=== PATIENT | female | born 1955 | race Caucasian/White ===

== ENCOUNTER 2019-05-22 07:36 | Day surgery (SDC) | payer MEDICARE, SELFPAY ==
[2019-05-21 16:10] VITALS: BMI 29.0
[2019-05-22 07:54] VITALS: BP 180/80; PULSE 71; RESP 18; TEMP 36.9; O2SAT 94
--- NOTE | 2019-05-22 08:00 | US_ITS ---
WS: [id number] ULTRASOUND LEFT BREAST HISTORY: MASS LT BREAST. ATTEMPT AT NEEDLE LOCALIZATION. COMPARISON: 04/11/2019 TECHNIQUE: 2-D and Doppler. Attempted wire localization of biopsy clip in the LEFT breast. Unable to definitely visualize the cli p. There is an area suspicious for the clip but this is not definite. Will change localization to karie reotactic. US/US breast LT limited* [id number] IMPRESSION: Unsuccessful localization of the prior biopsy clip in the LEFT breast. We will perform stereotactic localization.
--- NOTE | 2019-05-22 08:56 | MM_ITS ---
WS: [id number] STEREOTACTIC LEFT BREAST NEEDLE LOCALIZATION HISTORY: LT BREAST LUMP, localization of a clip upper outer quadrant of the LEFT breast. Unable to id entify the clip or nodule by ultrasound. COMPARISON: 03/06/2019 and 01/29/2019 Procedure, risks and complications are explained to the patient. Consent has been obtained. Localization of the prior biopsy clip is done with stereotactic technique. Skin is cleansed with Chlo raPrep and anesthetized with 1% buffered lidocaine. Kopans needle is inserted to the level of the bio psy clip. Needle is advanced 0.5 cm beyond the prior biopsy clip. Wire is secured and the patient is sent to the OR with no complications. SPECIMEN RADIOGRAPH: Initial specimen radiograph did not obtain the calcifications. 2 additional spec imens are submitted. One of these specimens labeled lateral edge and 2 out of 3 does contain the biop sy clip. MM/[place] [id number] IMPRESSION: 1. Stereotactic localization of the biopsy clip upper outer quadrant of the LE FT breast is successful. PATHOLOGY: Small intraductal papilloma versus noninvasive papillary carcinoma. Additional sclerosing adenosis with microcalcifications with hyperplasia. Exten sive fibrocystic changes. No invasive tumor is identified. Atypia is less than 1 mm from the margin in specimen B. RECOMMENDATION: Follow-up with Dr. Rodriguez.
--- NOTE | 2019-05-22 08:56 | MM_ITS ---
WS: [id number] STEREOTACTIC LEFT BREAST NEEDLE LOCALIZATION HISTORY: LT BREAST LUMP, localization of a clip upper outer quadrant of the LEFT breast. Unable to id entify the clip or nodule by ultrasound. COMPARISON: 03/06/2019 and 01/29/2019 Procedure, risks and complications are explained to the patient. Consent has been obtained. Localization of the prior biopsy clip is done with stereotactic technique. Skin is cleansed with Chlo raPrep and anesthetized with 1% buffered lidocaine. Kopans needle is inserted to the level of the bio psy clip. Needle is advanced 0.5 cm beyond the prior biopsy clip. Wire is secured and the patient is sent to the OR with no complications. SPECIMEN RADIOGRAPH: Initial specimen radiograph did not obtain the calcifications. 2 additional spec imens are submitted. One of these specimens labeled lateral edge and 2 out of 3 does contain the biop sy clip. MM/MM surgical specimen LT IMPRESSION: 1. Stereotactic localization of the biopsy clip upper outer quadrant of the LE FT breast is successful. PATHOLOGY: Small intraductal papilloma versus noninvasive papillary carcinoma. Additional sclerosing adenosis with microcalcifications with hyperplasia. Exten sive fibrocystic changes. No invasive tumor is identified. Atypia is less than 1 mm from the margin in specimen B. RECOMMENDATION: Follow-up with Dr. Rodriguez.
[2019-05-22] MEDS: sodium chloride 0.9% 1,000 ML 30 ML IV (10:27)
--- NOTE | 2019-05-22 10:55 | ANES.PREANES ---
Pre-Anesthetic Assessment Pre-Anesthetic Assessment: Height/Weight: Height 1.68 m Weight 81.647 kg Temp Pulse Resp BP Pulse Ox 98.4 F 71 18 180/80 94 05/22/19 07:54 05/22/19 07:54 05/22/19 07:54 05/22/19 07:54 05/22/19 07:54 Preop Diagnosis: Left breast lump Proposed Procedure: Operation Date: 05/22/19 10:20 Proposed Procedures p Breast Biopsy Needle Localization(Left) - Robinson Rodriguez MD s Breast Biopsy/Lumpectomy(Left) - Robinson Rodriguez MD Last intake: Intake Last Liquid Date 05/21/19 Last Liquid Time 19:00 Last Solid Date 05/21/19 Last Solid Time 19:00 Social: Social History: Tobacco Packs per day: 1 Pack years: 40 Comment: quit 10y Exam: Pre-Anes Outpt Exam: alert, oriented x 3, clear to auscultation bilaterally and regular rate & rhythm Pulmonary: Pulmonary: COPD Metabolic: Metabolic: Hyperlipidemia Neuropsych: Neuropsych: Depression Anesthetic Plan: ASA status: III Meds/Allergies Current Medications: Current Medications Generic Name Dose Route Start Last Admin Trade Name Freq PRN Reason Stop Dose Admin Sodium Chloride 1,000 mls @ 30 ml s/hr 05/22/19 07:45 05/22/19 10:27 Sodium Chloride 0.9% IV 05/23/19 07:44 30 mls/hr .Q24H COURTNEY Administration Data Anesthesia Cardiac Studies: No Data to Display
--- NOTE | 2019-05-22 11:13 | PM.HPUD ---
H&P update H&P Update: DATE OF SURGERY/PROCEDURE: 05/22/19 DATE H&P PERFORMED: 05/22/19 PLANNED PROCEDURE: Operation Date: 05/22/19 10:20 Proposed Procedures p Breast Biopsy Needle Localization(Left) - Robinson Rodriguez MD s Breast Biopsy/Lumpectomy(Left) - Robinson Rodriguez MD Full H&P Medications/Allergies: Current Medications: Current Medications Generic Name Dose Route Start Last Admin Trade Name Freq PRN Reason Stop Dose Admin Sodium Chloride 1,000 mls @ 30 ml s/hr 05/22/19 07:45 05/22/19 10:27 Sodium Chloride 0.9% IV 05/23/19 07:44 30 mls/hr .Q24H COURTNEY Administration
--- NOTE | 2019-05-22 12:07 | P.OP_ITS ---
Operative Report Date of procedure: 05/22/19 Pre-op Diagnosis: Left breast papillary lesion. Post-op diagnosis: same Procedure Done: Left breast biopsy following preoperative needle localization. Specimens removed/disposition: 1. Left breast lumpectomy specimen. Long suture anteriorly, short suture medially. 2. Medial edge of biopsy cavity. Suture opposite side of previous biopsy cavity. 3. Lateral edge of biopsy cavity. Suture opposite side of previous biopsy cavity. Surgeon: Robinson Rodriguez Anesthesia: MAC Estimated blood loss (mL): 10 Complications: None. Condition: stable Disposition: same day Procedure: The patient was brought to the operating room and was placed in a supine position on the operating room table. A monitored anesthetic was induced. The left breast was prepped and draped in a sterile fashion, taking care not to disturb the localization wire which had been placed in radiology preoperatively. A combination of 1% lidocaine and 0.5% bupivacaine with 1- 200,000 parts epinephrine was used for local anesthesia throughout the procedure. A slightly curvilinear incision was carried out at the entrance point of the wire in the upper outer quadrant of the left breast. Cautery was used to divide some of the breast tissue and eventually the top of the hub of the localization wire was seen. The wire and surrounding breast tissue were grasped with an Allis clamp and sharp dissection was used to remove all of the tissue all the way around the tip of the wire. The specimen was marked with a long suture anteriorly and a short suture medially. Upon removing the specimen from the cavity, however, the wire came out of the tissue. The tissue was still sent for an x-ray and even though some calcifications could be seen on one edge of the biopsy clip could not be identified. Upon palpation of the biopsy cavity the patient had some fibrous tissue both medially and laterally in the biopsy cavity. The lateral edge was grasped with an Allis clamp and was sharply exc ised. A suture was placed opposite the previous biopsy cavity side. Medially the fibrosis extended somewhat anteriorly and so a portion of the anterior edge and then the medial edge of tissue were excised sharply and once again, a suture of 0 Vicryl was placed opposite the previous biopsy cavity. The wound was irrigated with saline. No other abnormalities were found on palpation or inspection. Hemostasis was achieved with cautery. The skin was reapproximated using a running subcuticular suture of 4-0 Vicryl. Benzoin and Steri-Strips were placed over the incision and a sterile bandage fo llowed. The patient was taken to the recovery area in stable condition postoperatively.
[2019-05-22 12:12] VITALS: BP 139/77; PULSE 70; RESP 16; TEMP 36.6; O2SAT 93
[2019-05-22 12:37] VITALS: BP 162/80; PULSE 61; RESP 18; TEMP 36.6; O2SAT 93
== END 2019-05-22 13:27 | disposition home or self-care (01) ==
PROVIDERS: Family Provider Family Medicine; PCP Family Medicine; Visit Provider Surgery
PROC: (CPT 19101; principal; 2019-05-22 10:45)
PROC: (CPT 19101; 2019-05-22 10:45)
DX: D05.82 Other specified type of carcinoma in situ of left breast (principal); J43.9 Emphysema, unspecified; G47.30 Sleep apnea, unspecified; Z82.49 Family history of ischemic heart disease and other diseases of the circulatory system; Z83.3 Family history of diabetes mellitus; Z80.3 Family history of malignant neoplasm of breast; F17.210 Nicotine dependence, cigarettes, uncomplicated; E78.5 Hyperlipidemia, unspecified; F32.9 Major depressive disorder, single episode, unspecified
CPT/HCPCS: 19101; 12345; 19281; 76642; 88305; 88341; 88342; 96365; J0690; J2001; J2704; J3010; J3490; J7030

== ENCOUNTER 2019-06-12 14:36 | Outpatient (CLI) | payer MEDICARE, SELFPAY ==
--- NOTE | 2019-06-12 18:13 | ONC CON_ITS ---
Dr. Terrazas New Patient Note Patient: Jannet Vargas Unit #: [id number]: 1955 Dicatated By: Morgan Terrazas M.D.Date of Visit: Jun 12, 2019 Onc MED New Patient/Consult Referring Physician: Dr. Robinson Rodriguez M.D. Chief Complaint: Breast cancer. History of Present Illness: This is a 63-year-old woman with ductal carcinoma in situ of the left breast. She has been in good general health. She had presented with an abnormal screening mammogram. That study, from 01/29/2019, was BI-RADS 0 with increasing parenchymal asymmetry density noted in the upper outer left breast. Diagnostic mammogram with focused left breast ultrasound on 03/06/2019 was BI-RADS 4, suspicious. The ultrasound showed a wedge-shaped hypoechoic focus at the 2 o'clock position of the left breast measuring 3 x 3 x 4 mm. Biopsy was recommended. She returned for ultrasound-guided core needle biopsy of the left breast lesion on 04/11/2019. Pathology showed disrupted papilloma with monotonous pattern, appearance of which was highly suspicious for noninvasive papillary carcinoma. With that finding, she underwent left breast lumpectomy on 05/22/2019. The procedure included additional excisions from the medial and lateral edges of the biopsy cavity. Pathology on the initial excision showed a small intraductal papilloma with extensive sclerosing adenosis with microcalcifications. There was columnar cell hyperplasia with mild to moderate atypia, and there was focal atypical ductal hyperplasia. The additional excision at the lateral margin showed ductal carcinoma in situ, micropapillary pattern, low nuclear grade. DCIS was present within 1 mm of the new inked margin. There was no invasive carcinoma identified. The medial margin showed a small intraductal papilloma with no invasive or ductal carcinoma in situ identified. She is seen for further management of the breast cancer. She has been feeling fine. She has good energy and activity tolerance. ECOG score 0. Her appetite is good. She has no fever, night sweats, or hot flashes. She has chronic sinus symptoms. She has shortness of breath associated with COPD. She is on CPAP for obstructive sleep apnea. She does not complain of cough, and she has not been having chest pain. She has no GI or complaints. She has some arthritis in her left index finger. She has no other joint or bone pain. She has no focal neurologic symptoms. Past Medical History: Her medical history includes anxiety/depression, chronic obstructive pulmonary disease, hyperlipidemia, and obstructive sleep apnea. Past Surgical History: She underwent ultrasound directed core needle biopsy of the left breast on 04/11/2019. She underwent left breast lumpectomy on 05/22/2019. She had a previous biopsy of the left breast for benign disease in 2012. Her other surgeries have been limited to tonsillectomy and tubal ligation. Medications: Advair Diskus 1 (250-50 mcg/dose) Aerosol Powder, Breath Activated Inhalation daily, Lenora Allergy 2 Tablet (of 180 mg) Oral daily, CeleXA 1 Tablet (of 20 mg) Oral daily, Combivent Respimat 1 (20-100 mcg/act) Aerosol, solution Inhalation daily, Ibuprofen 1 Tablet (of 200 mg) Oral b.i.d., Pravastatin Sodium 1 Tablet (of 80 mg) Oral daily, traZODone HCl 1 Tablet (of 50 mg) Oral daily, Tylenol Sinus Severe 1 Tablet (of 5-325-200 mg) Oral PRN Allergies: Effexor XR, Sulfa Antibiotics, and Wellbutrin. Social History: Ms. Vargas is and she is retired. She has a history of smoking 1 1/2 to 2 packs of cigarettes daily for 25 years. She quit smoking 15 years ago. She has had some alcohol use, estimated at 2-4 beers once or twice a week. Family History: Her father had around age 70. She doesn't know much about him, as he had left when she was very young. Her mother had breast cancer. She with pulmonary embolism at age 85. Two sisters are in good health. Review Of Symptoms: Constitutional - She feels pretty good generally. She has good energy and she has normal activity. Her appetite is good and her weight is stable. No fever, chills, hot flashes, or night sweats. ECOG score is 0, Eyes - No change in vision, ENMT - No hearing loss. She has tinnitus. She has sinus congestion/drainage. No mouth sores. No sore throat or difficulty swallowing, Hematologic/Lymphatic - She bruises easily, Respiratory - She has some shortness of breath. No cough. No pleuritic pain or hemoptysis. She wears a CPAP at night, Cardiovascular - No angina pain. No palpitations, Gastrointestinal - No nausea or vomiting. No heartburn or acid reflux. No diarrhea or constipation. No blood in the stool or black stools, Genitourinary (F) - No dysuria or hematuria. No urinary frequency. No urgency or incontinence, Musculoskeletal - She has arthritis in her left index finger. She has no other joint or bone pain, Integumentary - No skin complications, Neurologic - She has occasional sinus headache. No dizziness. No numbness/paresthesias or other focal neurologic symptoms, Psychiatric - She has some anxiety and she feels depressed at times. No insomnia. Vital Signs: Performed on Jun 12, 2019 15:39: 0, 29.99, 1.94 sq.m, 66.00 in, 94 % (LOW), 72 /min, 18 /min, 155/83 mm(hg) (HIGH), 97.7 F (LOW), and 185.8 lbs (HIGH). Physical Examination: Constitutional - She appears to be in good general health, Eyes - Sclerae nonicteric. Conjunctivae clear, ENMT - No lesions noted in the oral cavity, Neck - No mass or thyromegaly, Hematologic/Lymphatic - No cervical or clavicular adenopathy, Respiratory - Lungs sound clear with diminished air movement bilaterally, Cardiovascular - Heart rhythm is regular. There is no murmur, gallop, or rub noted, Breasts - The right breast shows no mass. There is slight induration at the lumpectomy site in the upper outer quadrant of the left breast. There is no mass palpable. There is no axillary adenopathy, Abdomen - Soft and non-tender. Liver and spleen are not enlarged. There is no abdominal mass or ascites noted and there is no inguinal adenopathy, Back/Spine - No spine or CVA tenderness noted, Extremities - No edema. Pedal pulses are palpable bilaterally, Integumentary - No rashes. No suspicious skin lesions noted, Neurologic - No focal neurologic deficits noted. Impression: 1. Patient with very small focus of low nuclear grade ductal carcinoma in situ of the left breast. She underwent left breast lumpectomy on 05/22/2019. There was ductal carcinoma in situ within 1 mm of the final margin. There was no invasive carcinoma identified. 2. She had additional pathologic findings in the lumpectomy specimen including intraductal papilloma, columnar cell hyperplasia with mild to moderate atypia, and focal atypical ductal hyperplasia. Her other medical illnesses include: 3. Hyperlipidemia. 4. COPD. 5. Obstructive sleep apnea. 6. Anxiety/depression. Plan: The pathology results were reviewed with the patient and her . We discussed the clinical implications. Her left breast lumpectomy did show evidence of a small focus of ductal carcinoma in situ, though it probably was not the source of the abnormal mammogram/ultrasound. Nonetheless, there was DCIS within 1 mm of the surgical margin, and I think it would be advisable for her to proceed with radiation to the left breast. We discussed the fact that this is not invasive cancer and that it does not have potential to spread. However, she may still benefit with adjuvant hormonal therapy, particularly in view of the other pathologic findings in the lumpectomy specimen, particularly the atypical columnar cell hyperplasia and the atypical ductal hyperplasia, which does put her higher risk for further development of breast cancer. At this point I will arrange for referral to Dr. Fajardo to discuss radiation. I will plan to see her again for further discussion of adjuvant hormonal therapy when the radiation is completed. Signed By: Morgan Terrazas M.D. <<Signature on File>>
== END 2019-06-12 14:37 | disposition home or self-care (01) ==
LOC: ONCMED 14:36
PROVIDERS: Family Provider Family Medicine; PCP Family Medicine; Referring Provider Surgery; Visit Provider Internal Medicine Medical Oncology
DX: D05.12 Intraductal carcinoma in situ of left breast (principal); F41.8 Other specified anxiety disorders; J44.9 Chronic obstructive pulmonary disease, unspecified; E78.5 Hyperlipidemia, unspecified; G47.33 Obstructive sleep apnea (adult) (pediatric); Z79.51 Long term (current) use of inhaled steroids; Z87.891 Personal history of nicotine dependence
CPT/HCPCS: 99205

== ENCOUNTER 2019-06-13 12:00 | Outpatient (CLI) | payer MEDICARE, SELFPAY ==
--- NOTE | 2019-06-14 20:07 | N.ONRAD NP_ITS ---
Radiation Oncology New Patient Visit Patient: Jannet Vargas MR#: [id number] : 1955> Age: 63> Sex: Female> Dictated by: Dr. Prince Fajardo Date of Service: 06/13/2019 Referring Physician(s) : Dr. Robinson Rodriguez Primary Diagnosis: D05.12 - intraductal carcinoma in situ of left breast, Diagnosed 06/12/2019 (active). Previous Treatment: Left breast lumpectomy Chief complaint: breast cancer History of Present Illness: This is a 63 y/o female who had an abnormal mammogram, category 4, which showed an increasing parenchymal asymmetry density noted in the upper outer left breast. Ultrasound revealed a wedge-shaped hypoechoic focus at 2:00 O???clock position. She underwent an ultrasound-guided core needle biopsy of this lesion on April 11, 2019. Pathology showed disrupted papilloma with more lung tumor mass pattern, appearance of which was highly suspicious for noninvasive papillary carcinoma. She denies any symptoms associated with the diagnosis. Specifically, she denies feeling a nodule/mass, skin changes, and nipple retraction/discharge. The patient underwent left breast lumpectomy on May 22, 2019 with additional excisions from the medial and lateral edges of the lumpectomy cavity. Pathology showed DCIS which was present within 1 mm of the new inked margin from the left lateral edge. She has recovered well from the surgery with no complications. She comes in today to discuss about adjuvant radiation therapy. Current Medications: Advair Diskus, luis Allergy, celeXA, combivent Respimat, ibuprofen, pravastatin Sodium, traZODone HCl, tylenol Sinus Severe. Allergies: Sulfa Antibiotics, Wellbutrin and Effexor XR. Medical History: - Anxiety, - chronic obstructive pulmonary disease, - depression, - hyperlipidemia, - obstructive sleep apnea. No history of collagen vascular disease. No previous radiation therapy. Surgical History: Left breast biopsy for benign disease in 2012, left breast lumpectomy on 05/22/2019, tonsillectomy, tubal ligation and ultasound directed core needle biopsy of the left breast on 04/11/2019. Family History: Her father had around age 68. She doesn't know much about him, as he had left when she was very young. Her mother had breast cancer. She with pulmonary embolism at age 85. Two sisters are in good health. Social History: Last screened on 06/13/2019 - Yes - but has quit for 15 years. Smoked for 25 years. Last screened on 06/13/2019 - Active drinker 4 drinks/day 2 days/week. Patient indicated access to the following support systems: Adequate transportation available for expected visits, Lives in own house, Lives with spouse, significant other, family, or friends, and Supportive family/friends willing to assist with needs. Patient indicated the following nutritional habits: Regular meals. Patient indicated participation in the following forms of activity: Regular exercise. Obstetrics/Gynecology History: G2, P2. Age of menarche at age 8. Went through natural menopause at age 47. No H/O receiving HRT. H/O using BCP for 15 years. Current Complaints / Review of Systems: Constitutional - Denies lack of appetite, fatigue, fever, night sweats and change in weight. Eyes - Denies blurred vision and double vision. ENMT - Denies dysphagia, ear pain, mouth dryness, stomatitis and altered taste. Neck - Denies neck pain. Integumentary - Denies rash. Breasts - Denies pain. Cardiovascular - Denies arrhythmias and chest pain. Respiratory - Complains of mild dyspnea associated with normal activity. Denies cough, hemoptysis and wheezing. Gastrointestinal - Denies abdominal pain, constipation, diarrhea, heartburn / dyspepsia, melena / GI bleeding, nausea and vomiting. Genitourinary (F) - Denies dysuria, frequency, urgency, vaginal discharge / bleeding and vaginal spotting. Musculoskeletal - Denies bone pain, joint pain and muscle weakness. Neurologic - Denies dizziness, abnormal gait and headaches. Endocrine - Denies diabetes and thyroid disease. Hematologic/Lymphatic - Denies tender or enlarged lymph nodes.. Vital Signs: Performed on 06/13/2019 11:28 AM BMI - 29.795 kg/m2 (high), Height - 66.00 in, Weight - 184.6 lbs, Temperature - 98.4 f, Pulse - 60, Respiration - 18, O2 Sat - 94 % (low), Pain - 0, Fatigue - 0 and BP - 136/ 79 mm(hg). Physical Exam: General: Alert and oriented x 3. No acute distress. HEENT: Normocephalic, atraumatic. Extraocular Movements Intact: Pupils Equal, Round, Reactive to Light and Accommodation: Sclerae anicteric. Oral cavity is clear without lesions, masses or ulcers. NECK: Supple without supraclavicular or jugular lymphadenopathy. LUNGS: Clear to auscultation bilaterally without rales, rhonchi or wheeze. HEART: Regular rate and rhythm, normal S1 and S2 without murmur, gallop or rub. BREASTS: There is no mass/nodule palpated of the left breast. No skin change, nipple discharge or retraction. The surgical incision has healed up well with no signs of bleeding or infection. No enlarged lymph nodes in the axilla. Exam of the contralateral breast is unremarkable. MUSCULOSKELETAL: No tenderness or percussion pain over the axial skeleton, scapulae or pelvis. ABDOMEN: Soft, nontender, nondistended without masses or organomegaly. Bowel sounds are present. EXTREMITIES: No peripheral edema is identified. Limited motor and sensory examination are grossly intact and symmetric bilaterally. NEUROLOGIC: Cranial nerves II ???XII are grossly intact. Normal sensation, strength 5/5 in all extremities, normal gait, no ataxia. Performance Status: 0 - Fully active, able to carry on all predisease activities without restrictions. (ECOG) Pathology: intraductal carcinoma in situ of left breast, Lab: none pending Imaging: See HPI Impression: The patient is a 63 year old female recently diagnosed with left breast DCIS, low nuclear grade, s/p left lumpectomy. Surgical margins are negative but close at left lateral <1mm. Plan: I recommend adjuvant whole breast irradiation to 42.5Gy followed by a boost to the tumor bed of 10Gy. The procedure, benefit, risks and potential side effects of radiation therapy were explained to the patient and her family in detail. The potential side effects include but are not limited to fatigue, skin reaction, breast swelling/tenderness, fibrosis, slightly increased risk of rib fracture, damage to the lung and heart, lymphedema and secondary malignancy. Ms Vargas has expressed good understanding and decided to proceed with the radiotherapy. Signed by: 06/14/2019 8:05:53 PM <<Signature on File>> CPT Code: CPT Code: Signed By: Dr. Prince Fajardo, 06/14/2019 8:05:54 PM <<Signature on File>>
== END 2019-06-13 12:01 | disposition home or self-care (01) ==
LOC: ONCMED 12:01
PROVIDERS: Family Provider Family Medicine; PCP Family Medicine; Visit Provider Radiology Radiation Oncology
DX: D05.12 Intraductal carcinoma in situ of left breast (principal); F41.8 Other specified anxiety disorders; J44.9 Chronic obstructive pulmonary disease, unspecified; E78.5 Hyperlipidemia, unspecified; G47.33 Obstructive sleep apnea (adult) (pediatric); Z79.51 Long term (current) use of inhaled steroids; Z79.891 Long term (current) use of opiate analgesic; Z87.891 Personal history of nicotine dependence; Z98.890 Other specified postprocedural states
CPT/HCPCS: 99205

== ENCOUNTER 2019-06-27 05:44 | Outpatient (RCR) | payer MEDICARE, SELFPAY ==
--- NOTE | 2019-06-18 | CT_ITS ---
Radation Therapy Planning CT images; total exam DLP: 487.19 mGy-cm MTDD
--- NOTE | 2019-06-25 14:47 | ONCRAD TMN_ITS ---
Radiation Oncology Weekly Treatment Management Patient: Jannet Vargas MR#: [id number] : 1955> Age: 64> Sex: Female Dictated by: Dr. 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 ID: [id number], Energy: 15X/6X, Dose/Fx (cGy): 266, #Fx: , Dose Correction (cGy): 0, Total Dose (cGy): 266, Start Date: 06/25/2019, Elapsed Days: 0 Current Complaints/Interval History: Constitutional Denies lack of appetite, fatigue, fever, night sweats and change in weight. Integumentary No redness to the left breast Breasts Denies pain. Respiratory Complains of chronic dyspnea. Denies cough and wheezing. Current Medications: Advair Diskus, luis Allergy, celeXA, combivent Respimat, ibuprofen, pravastatin Sodium, traZODone HCl, tylenol Sinus Severe. Allergies: Sulfa Antibiotics, Wellbutrin and Effexor XR. Vital Signs: Performed on 06/25/2019 1:44 PM BMI - 29.763 kg/m2 (high), Height - 66.00 in, Weight - 184.4 lbs, Temperature - 97.9 f, Pulse - 63, Respiration - 18, O2 Sat - 95 % (low), Pain - 0 and BP - 153/ 83 mm(hg)(high/). Physical Exam: Appears stable, no skin erythema or desquamation. Performance Status: 0 - Fully active, able to carry on all predisease activities without restrictions. (ECOG) Lab: None pending in Radiation Oncology. Imaging: No new diagnostic imaging was performed since the last weekly treatment visit. All radiation therapy related imaging (including but not limited to kV generated images) was reviewed. Appropriate changes, if any, were made to assure accurate target localization. Impression/Plan: Started RT today. Doing well. Continue treatment as planned. CPT: 25398 Signed by: Dr. Prince Fajardo>06/25/2019 2:46:18 PM <<Signature on File>>
== END 2019-06-28 23:59 | disposition home or self-care (01) ==
LOC: ONCMED 05:44
PROVIDERS: Family Provider Family Medicine; PCP Family Medicine; Visit Provider Radiology Radiation Oncology
DX: Z51.0 Encounter for antineoplastic radiation therapy (principal); D05.12 Intraductal carcinoma in situ of left breast; R06.00 Dyspnea, unspecified
CPT/HCPCS: 77280; 77290; 77295; 77300; 77334; 77387; 77412

== ENCOUNTER 2019-07-28 06:30 | Outpatient (RCR) | payer MEDICARE, SELFPAY ==
--- NOTE | 2019-06-30 11:47 | ONCRAD TMN_ITS ---
Radiation Oncology Weekly Treatment Management Patient: Jannet Vargas MR#: [id number] : 1955 Age: 64 Sex: Female Dictated by: Dr. Prince Fajardo Date of Service: 06/30/2019 Referring Physician(s) : Natasha Geiger M.D. 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 ID: [id number], Energy: 15X/6X, Dose/Fx (cGy): 266, #Fx: , Dose Correction (cGy): 0, Total Dose (cGy): 1,064, Start Date: 06/25/2019, Elapsed Days: 5 Current Complaints/Interval History: Constitutional Denies lack of appetite, fatigue, fever, night sweats and change in weight. Integumentary No redness or irritation to the left breast Breasts Denies pain. Respiratory Complains of chronic dyspnea. Denies cough and wheezing. Current Medications: Advair Diskus, luis Allergy, celeXA, combivent Respimat, ibuprofen, pravastatin Sodium, traZODone HCl, tylenol Sinus Severe. Allergies: Sulfa Antibiotics, Wellbutrin and Effexor XR. Vital Signs: Performed on 06/30/2019 11:21 AM BMI - 30.118 kg/m2 (high), Height - 66.00 in, Weight - 186.6 lbs, Temperature - 97.9 f, Pulse - 62, Respiration - 20, O2 Sat - 94 % (low), Pain - 0 and BP - 143/ 72 mm(hg)(high/). Physical Exam: Appears stable, no skin erythema or desquamation. Performance Status: 0 - Fully active, able to carry on all predisease activities without restrictions. (ECOG) Lab: None pending in Radiation Oncology. Imaging: No new diagnostic imaging was performed since the last weekly treatment visit. All radiation therapy related imaging (including but not limited to CBCT generated images) was reviewed. Appropriate changes, if any, were made to assure accurate target localization. Impression/Plan: Tolerating treatment well. Continue treatment as planned. Continue aquaphor CPT: 84338 Signed by: Dr. Prince Fajardo>06/30/2019 11:45:13 AM <<Signature on File>>
--- NOTE | 2019-07-09 13:13 | ONCRAD TMN_ITS ---
Radiation Oncology Weekly Treatment Management Patient: Jannet Vargas MR#: [id number] : 1955> Age: 64> Sex: Female Dictated by: Dr. 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 ID: [id number], Energy: 15X/6X, Dose/Fx (cGy): 266, #Fx: , Dose Correction (cGy): 0, Total Dose (cGy): 2,926, Start Date: 06/25/2019, Elapsed Days: 14 Current Complaints/Interval History: Current Medications: Advair Diskus, luis Allergy, celeXA, combivent Respimat, ibuprofen, pravastatin Sodium, traZODone HCl, tylenol Sinus Severe. Allergies: Sulfa Antibiotics, Wellbutrin and Effexor XR. Vital Signs: Performed on 07/09/2019 12:13 PM Weight - 187.6 lbs, Temperature - 97.4 f, Pulse - 72, Respiration - 16, O2 Sat - 93 % (low), Pain - 4 and BP - 163/ 81 mm(hg)(high/). Physical Exam: Appears stable, no skin erythema or desquamation. Performance Status: 0 - Fully active, able to carry on all predisease activities without restrictions. (ECOG) Lab: None pending in Radiation Oncology. Imaging: No new diagnostic imaging was performed since the last weekly treatment visit. All radiation therapy related imaging (including but not limited to kV, MV, and CBCT generated images) was reviewed. Appropriate changes, if any, were made to assure accurate target localization. Impression/Plan: Tolerating treatment well with expected side effects. Continue treatment as planned. CPT: 06866 Signed by: Dr. Dez Ureña>07/09/2019 1:10:42 PM <<Signature on File>>
--- NOTE | 2019-07-15 12:02 | ONCRAD TMN_ITS ---
Radiation Oncology Weekly Treatment Management Patient: Jannet Vargas MR#: [id number] : 1955> Age: 64> Sex: Female Dictated by: Dr. Jacobo Puckett Date of Service: 07/15/2019 Referring Physician(s) : Natasha Geiger M.D. 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 ID: [id number], Energy: 15X/6X, Dose/Fx (cGy): 266, #Fx: 15 / 16, Dose Correction (cGy): 0, Total Dose (cGy): 3,990, Start Date: 06/25/2019, Elapsed Days: 20 Current Complaints/Interval History: Seen after 15 of 16 treatments to the left breast. She has tolerated treatment extremely well. She had slight fatigue last week but her energy level is back to normal this week. No change in appetite. She has a mild skin reaction, primarily in the axilla. This area will be outside the boost volume. She has no significant edema of the breast. She has no tenderness of the breast. Overall it appears she is tolerating treatment very well. She has 1 more treatment to go to the breast and then will receive a boost to the tumor bed, finishing her treatment next week. She said the Dr. Terrazas told her that he would see her after finishing radiation and they would discuss whether any additional treatment is appropriate. No questions about the treatment process. Continue as planned. Current Medications: Advair Diskus, luis Allergy, celeXA, combivent Respimat, ibuprofen, pravastatin Sodium, traZODone HCl, tylenol Sinus Severe. Allergies: Sulfa Antibiotics, Wellbutrin and Effexor XR. Vital Signs: Physical Exam: Appears stable, no skin erythema or desquamation. Performance Status: 0 - Fully active, able to carry on all predisease activities without restrictions. (ECOG) Lab: None pending in Radiation Oncology. Imaging: No new diagnostic imaging was performed since the last weekly treatment visit. All radiation therapy related imaging (including but not limited to kV, MV, and CBCT generated images) was reviewed. Appropriate changes, if any, were made to assure accurate target localization. Impression/Plan: Tolerating treatment well with expected side effects. Continue treatment as planned. CPT: 55505 Signed by: Dr. Jacobo Puckett>07/15/2019 12:01:16 PM <<Signature on File>>
--- NOTE | 2019-08-01 08:45 | ONC FU_ITS ---
Dr. Terrazas Patient Follow-Up Note Patient: Jannet Vargas Unit #: [id number]: 1955 Dicatated By: Morgan Terrazas M.D.Date of Visit:Jul 28, 2019 Onc Med Follow-up/Prog Note Chief Complaint: Breast cancer. History of Present Illness: This is a 63-year-old woman with ductal carcinoma in situ of the left breast, ER postitive. She had presented with an abnormal screening mammogram. That study, from 01/29/2019, was BI-RADS 0 with increasing parenchymal asymmetry density noted in the upper outer left breast. Diagnostic mammogram with focused left breast ultrasound on 03/06/2019 was BI-RADS 4, suspicious. The ultrasound showed a wedge-shaped hypoechoic focus at the 2 o'clock position of the left breast measuring 3 x 3 x 4 mm. Biopsy was recommended. She returned for ultrasound-guided core needle biopsy of the left breast lesion on 04/11/2019. Pathology showed disrupted papilloma with monotonous pattern, appearance of which was highly suspicious for noninvasive papillary carcinoma. With that finding, she underwent left breast lumpectomy on 05/22/2019. The procedure included additional excisions from the medial and lateral edges of the biopsy cavity. Pathology on the initial excision showed a small intraductal papilloma with extensive sclerosing adenosis with microcalcifications. There was columnar cell hyperplasia with mild to moderate atypia, and there was focal atypical ductal hyperplasia. The additional excision at the lateral margin showed ductal carcinoma in situ, micropapillary pattern, low nuclear grade. DCIS was confirmed with strong 100% estrogen receptor positivity and negative CK 5/6 staining. DCIS was present within 1 mm of the new inked margin. There was no invasive carcinoma identified. The medial margin showed a small intraductal papilloma with no invasive or ductal carcinoma in situ identified. She was referred to Dr. Fajardo, and she then began radiation to the left breast. She completed treatment on 07/22/2019, total dose 5256 cGy. Her other medical illnesses include hyperlipidemia, COPD, obstructive sleep apnea, and anxiety/depression. She has a history of smoking 1-1/2 to 2 packs of cigarettes daily for 25 years. She quit smoking 15 years ago. She is seen for a Telehealth visit. She has been feeling pretty good generally. She has had some fatigue following the radiation. Her ECOG score is 1. She has good appetite. She has not had fever or hot flashes. She has had some sweating with activity. She has some shortness of breath, but she says her breathing is as usual. She does not complain of cough, and she has not been having chest pain. She has no GI or complaints. She has no significant joint or bone pain. She has no focal neurologic symptoms. Medications: Advair Diskus 1 (250-50 mcg/dose) Aerosol Powder, Breath Activated Inhalation daily, Lenora Allergy 2 Tablet (of 180 mg) Oral daily, Amoxicillin 1 (500 mg) Capsule Oral t.i.d. for 7 days, CeleXA 1 Tablet (of 20 mg) Oral daily, Combivent Respimat 1 (20-100 mcg/act) Aerosol, solution Inhalation daily, Ibuprofen 1 Tablet (of 200 mg) Oral b.i.d., Pravastatin Sodium 1 Tablet (of 80 mg) Oral daily, traZODone HCl 1 Tablet (of 50 mg) Oral daily, Tylenol Sinus Severe 1 Tablet (of 5-325-200 mg) Oral PRN Allergies: Effexor XR, Sulfa Antibiotics, and Wellbutrin. Review of Systems: Constitutional - Her energy level is pretty good. She is doing some light housework. Her appetite is good and weight is stable. No fever or chills. No hot flashes. She has had some sweating with activity. ECOG score is 1, ENMT - No sinus congestion/drainage. No mouth sores. No sore throat or difficulty swallowing, Hematologic/Lymphatic - She bruises easily, Respiratory - She has shortness of breath with exertion. No cough. No pleuritic pain or hemoptysis, Cardiovascular - No angina pain. No palpitations, Gastrointestinal - No nausea or vomiting. No heartburn or acid reflux. No diarrhea or constipation. No blood in the stool or black stools, Genitourinary (F) - No dysuria or hematuria. No urinary frequency. No urgency or incontinence, Musculoskeletal - No joint or bone pain, Integumentary - She has tristan from radiation that are starting to heal, Neurologic - No headache or dizziness. No numbness/paresthesias or other focal neurologic symptoms, Psychiatric - No anxiety or depression. No insomnia. Physical Examination: Constitutional - She looks good generally. Impression: 1. Patient with very small focus of low nuclear grade ductal carcinoma in situ of the left breast, ER positive. She underwent left breast lumpectomy on 05/22/2019. There was ductal carcinoma in situ within 1 mm of the final margin. There was no invasive carcinoma identified. 2. She had additional pathologic findings in the lumpectomy specimen including intraductal papilloma, columnar cell hyperplasia with mild to moderate atypia, and focal atypical ductal hyperplasia. 3. She underwent radiation to the left breast, completed on 07/22/2019 to a total dose of 5256 cGy. She tolerated the treatment well. Her other medical illnesses include: 4. Hyperlipidemia. 5. COPD. 6. Obstructive sleep apnea. 7. Anxiety/depression. Plan: She has completed radiation to the left breast. As her cancer was ER positive, she would be eligible now for adjuvant hormonal therapy. We discussed the fact that in the setting of intraductal breast cancer adjuvant hormonal therapy does not improve survival, but does reduce the risk of breast cancer recurrence or development of new breast cancer and the need to have treatment for breast cancer again in the future. The main concern I have with regard to her further risk has to do with the other pathologic changes noted on the excisional biopsy, including the columnar cell hyperplasia with mild to moderate atypia and the focal atypical ductal hyperplasia. Overall, though, I do not feel that the risk is unusually high and I am not overly enthusiastic about recommending adjuvant therapy. She is going to consider it. If she opts against that, I will just see her for a follow-up visit in 6 months. Signed By: Morgan Terrazas M.D. <<Signature on File>>
== END 2019-07-29 23:59 | disposition home or self-care (01) ==
LOC: ONCMED 06:30
PROVIDERS: Family Provider Family Medicine; PCP Family Medicine; Visit Provider Internal Medicine Medical Oncology
DX: Z51.0 Encounter for antineoplastic radiation therapy (principal); D05.12 Intraductal carcinoma in situ of left breast; Z17.0 Estrogen receptor positive status [ER+]; R06.00 Dyspnea, unspecified; E78.5 Hyperlipidemia, unspecified; J44.9 Chronic obstructive pulmonary disease, unspecified; G47.33 Obstructive sleep apnea (adult) (pediatric); F41.8 Other specified anxiety disorders; Z79.52 Long term (current) use of systemic steroids; Z87.891 Personal history of nicotine dependence
CPT/HCPCS: 77307; 77334; 77336; 77387; 77412; 77427; 99214; G6002

== ENCOUNTER 2021-02-02 15:10 | Outpatient (CLI) | payer MEDICARE, SELFPAY ==
--- NOTE | 2021-02-02 15:22 | MM_ITS ---
WS: [id number] DIAGNOSTIC BILATERAL DIGITAL MAMMOGRAM WITH CAD HISTORY: HX OF LT BREAST CA COMPARISON: 05/22/2019 and 01/29/2019 TECHNIQUE: Bilateral craniocaudad, mediolateral oblique, and mediolateral views are submitted. Comput er aided detection utilized. Breast composition: The breasts are heterogeneously dense, which may obscure small masses. Postsurgic al changes and lumpectomy are noted within the upper outer quadrant of the LEFT breast. No recurrent mass or calcifications are identified. Satisfactory postoperative changes. MM/[place] [id number] IMPRESSION: BI-RADS: 2-Benign FOLLOW UP: 1 Year Follow-up
== END 2021-02-02 15:11 | disposition home or self-care (01) ==
LOC: RADSHAW 15:15
PROVIDERS: Family Provider Family Medicine; PCP Family Medicine; Visit Provider Family Medicine
DX: Z85.3 Personal history of malignant neoplasm of breast (principal)
CPT/HCPCS: 77066

== ENCOUNTER 2022-02-23 | Outpatient (CLI) | payer MEDICARE, SELFPAY | END 2022-02-23 23:00 | disposition home or self-care (01) | LOC: RT 02-26 22:00 | PROVIDERS: PCP Family Medicine; Visit Provider Family Medicine | DX: R53.1 Weakness (principal); R06.00 Dyspnea, unspecified; Z13.6 Encounter for screening for cardiovascular disorders | CPT/HCPCS: 80053; 80061; 85025 ==

== ENCOUNTER 2022-02-24 09:21 | Outpatient (CLI) | payer MEDICARE, SELFPAY ==
--- NOTE | 2022-02-24 09:41 | XR_ITS ---
WS: [id number] Exam: XR chest 2V* [id number] Date/Time of Exam: 02/24/2022 9:47 AM Reason For Exam: dyspnea Comparison 07/23/2016. The lungs are hyperinflated and clear. Normal cardiomediastinal silhouette. Bony structures are intac t. Several scattered calcified granulomas. XR/XR chest 2V* [id number] IMPRESSION: 1. Pulmonary hyperinflation which may indicate obstructive lung disease. No acu te process.
== END 2022-02-24 09:22 | disposition home or self-care (01) ==
LOC: RAD 09:24
PROVIDERS: PCP Family Medicine; Visit Provider Family Medicine
DX: R06.00 Dyspnea, unspecified (principal)
CPT/HCPCS: 71046

== ENCOUNTER → 2022-02-28 13:11 | Outpatient (BNVA) | payer MEDICARE, SELFPAY | PROVIDERS: PCP Family Medicine; Visit Provider Family Medicine | DX: D64.9 Anemia, unspecified (principal); Z13.6 Encounter for screening for cardiovascular disorders; R06.00 Dyspnea, unspecified | CPT/HCPCS: 82728; 83550; 85045 ==

== ENCOUNTER → 2022-03-20 14:55 | Outpatient (BNVA) | payer MEDICARE, SELFPAY | PROVIDERS: Family Provider Family Medicine; PCP Family Medicine; Visit Provider Family Medicine | DX: R53.1 Weakness (principal); R06.00 Dyspnea, unspecified; Z13.6 Encounter for screening for cardiovascular disorders; D64.9 Anemia, unspecified | CPT/HCPCS: 82270 ==

== ENCOUNTER 2022-04-05 08:12 | Outpatient (CLI) | payer MEDICARE, SELFPAY | END 2022-04-05 08:13 | disposition home or self-care (01) | LOC: RT 08:14 | PROVIDERS: PCP Family Medicine; Visit Provider Family Medicine | DX: R06.00 Dyspnea, unspecified (principal); R53.1 Weakness | CPT/HCPCS: 94060; J7613 ==

== ENCOUNTER 2022-05-04 21:26 | Emergency (ER) | payer MEDICARE, SELFPAY ==
[2022-05-04] VITALS (7 sets, daily range): BP systolic 81–150; BP diastolic 43–76; PULSE 46–71; RESP 14–20; TEMP 36.3; O2SAT 89–93
--- NOTE | 2022-05-04 21:28 | XRR_ITS ---
PROCEDURE INFORMATION: Exam: XR Chest Exam date and time: 05/04/2022 10:00 PM Age: 66 years old Clinical indication: Chest pressure; Patient HX: C/O chest pain. History of breast cancer and copd. ; Additional info: Cp TECHNIQUE: Imaging protocol: Radiologic exam of the chest. Views: 1 view. COMPARISON: CR XR chest 2V* [id number] 02/24/2022 9:53 AM FINDINGS: Lungs: Stable calcified granuloma in the the right lower lobe. Pleural spaces: No pleural effusion. No pneumothorax. Heart/Mediastinum: The cardiac silhouette and mediastinal contours are unremarkable. Vasculature: Stable vascular calcifications in the aorta. Bones/joints: Unremarkable for age. XR/XR chest 1V portable [id number] IMPRESSION: 1. No acute cardiopulmonary process. 2. Incidental/nonacute findings are listed in the report.
--- NOTE | 2022-05-04 21:28 | ECG_ITS ---
[facility] Test Date: 2022-05-04 Pat Name: Jannet Vargas Department: Room: Gender: Female Embedded Software Programmer: : 1955 Requested By: Meg Ruffin Order Number: [id number] Annie MD: Selam Gonzalez M.D. Measurements Intervals [place] Rate: 64 P: 64 NE: 157 QRS: 67 QRSD: 89 T: 86 QT: 412 QTc: 428 Interpretive Statements SINUS RHYTHM POSSIBLE RIGHT VENTRICULAR CONDUCTION DELAY [RSR (QR) IN V1/V2] Compared to ECG 07/23/2016 13:04:52 Myocardial infarct finding no longer present Electronically Signed On 05-05-2022 16:58:54 ARMATURE TESTER by Selam Gonzalez M.D. [id number]
--- NOTE | 2022-05-04 21:43 | ED_ITS ---
HPI - Chest Pain General: Chief Complaint: Chest Pain Stated Complaint: Chest Pains Time Seen by Provider: 05/04/22 21:32 Source: patient Mode of arrival: ambulatory Limitations: no limitations History of Present Illness: 66-year-old female who states she has been having chest pain over the last day states she is having pain throughout the night and then again tonight. States that sharp pain to the left side of her chest states pain is currently a 4 out of 10 she denies any shortness of breath denies any nausea or diaphoresis she denies any worsening proving factors. Associated symptoms: Deny abdominal pain, dyspnea, fever(s), nausea or vomiting Review of Systems Const: Denies: fever(s), chills, body aches or change in appetite Eyes: Denies: blurry vision or eye discomfort ENMT: Denies: throat pain or dental pain Card: Reports: chest pain Resp: Denies: dyspnea GI: Denies: abdominal pain, nausea, vomiting or diarrhea : Denies: dysuria Musc: Denies: neck pain or back pain Skin/Breast: Denies: rash Neuro: Denies: headache(s) Psych: Denies: depression Lev/Lymph: Denies: easy bruising All/Imm: Denies: urticaria PFSH ED PFSH: Medical History (Updated 05/05/22 @ 00:20 by Meg Ruffin MD) History of anxiety Social History (Updated 05/04/22 @ 21:45 by Meg Ruffin MD) Smoking and tobacco status: never smoked Physical Exam Const: COMMON NORMALS: no acute distress, patient oriented x3 and healthy appearing HENMT: COMMON NORMALS: normocephalic and atraumatic HEAD & SCALP: normocephalic and atraumatic Eye: COMMON NORMALS: Equal, round and reactive pupils present and EOMs intact bilaterally PUPIL: Yes Equal, round and reactive pupils present Neck/C-Spine: COMMON NORMALS: full ROM and supple Chest: COMMONS NORMALS: normal inspection of the chest and normal palpation of entire chest wall Resp: COMMON NORMALS: normal respiratory effort, No retractions, No use of accessory muscles and clear to auscultation bilaterally AUSCULTATION: clear to auscultation bilaterally Cardio: COMMON NORMALS: regular rate, regular rhythm and No murmurs present (Cardio) RATE: regular rate RHYTHM: regular rhythm GI: COMMON NORMALS: Normal to inspection, nondistended, normoactive bowel sounds present, Soft to palpation, non-tender and no masses PALPATION: Yes Soft to palpation Extremity: COMMON NORMALS: normal to inspection and full ROM Neuro: COMMON NORMALS: patient oriented x3, moves all extremities and no focal motor deficits Psych: COMMON NORMALS: mental status grossly normal, Normal thought process present and cooperative THOUGHT PROCESS: Normal thought process present Skin: COMMON NORMALS: no rashes or lesions noted and no wounds GENERAL SKIN EXAM: no rashes or lesions noted Course Vital Signs: Vital signs: Vital Signs Temperature 97.4 F L 05/04/22 21:36 Pulse Rate 66 05/05/22 00:00 Respiratory Rate 15 05/05/22 00:00 Blood Pressure 157/71 05/05/22 00:00 Pulse Oximetry 90 05/05/22 00:00 Oxygen Delivery Me thod 05/04/22 23:15 MDM - Chest Pain Medical Decision Making Patient presents here with chest pain is atypical in nature initial and repeat troponins here are negative CT angio was negative as well she feels much improved I feel she is stable for discharge she is to follow-up with PCP in 3 to 5 days return if worsening she understands agrees to plan. Lab Data 05/04/22 21:56 05/04/22 21:56 Radiology Impressions Chest X-Ray 05/04/22 21:28 IMPRESSION: 1. No acute cardiopulmonary process. 2. Incidental/nonacute findings are listed in the report. Chest CTA 05/04/22 22:52 IMPRESSION: 1. No evidence for pulmonary embolism. 2. No acute cardiopulmonary process. 3. Three noncalcified nodules in the right lung. A nodule in the right middle lobe with an average measurement of 3 mm is stable. Two right upper lobe nodules are new,, the of these has of 3 mm. Fleischner Society follow up recommendations for incidental nodules are not indicated. Follow up per the patient's medical condition. 4. Small pericardial effusion. 5. An irregular nodular focus in the left breast has decreased in size. This may represent residual postsurgical and/or post radiation change. 6. Incidental/nonacute findings are listed in the report. Laboratory Results WBC 7.0 10^3/uL (4.0-10.0) 05/04/22 21:56 RBC 4.84 10^6/uL (4.1-5.3) 05/04/22 21:56 Hgb 14.3 g/dL (11.5-15.3) 05/04/22 21:56 Hct 44.7 % (37.0-47.0) 05/04/22 21:56 MCV 92.4 fl (81-99) 05/04/22 21:56 MCH 29.5 pg (28.0-34.0) 05/04/22 21:56 MCHC 32.0 g/dL (30.0-36.0) 05/04/22 21:56 RDW 17.6 % (12.1-15.1) H 05/04/22 21:56 Plt Count 292 10^3/cmm (130-400) 05/04/22 21:56 MPV 9.8 fL (7.4-10.4) 05/04/22 21:56 Neut % (Auto) 55.9 % 05/04/22 21:56 Lymph % (Auto) 31.5 % 05/04/22 21:56 [place] % (Auto) 7.5 % 05/04/22 21:56 Eos % (Auto) 3.7 % 05/04/22 21:56 Baso % (Auto) 1.3 % 05/04/22 21:56 Neut # (Auto) 3.92 10^3/uL (1.8-7.7) 05/04/22 21:56 Lymph # (Auto) 2.2 10^3/uL (0.8-4.8) 05/04/22 21:56 [place] # (Auto) 0.5 10^3/uL (0.2-0.9) 05/04/22 21:56 Eos # (Auto) 0.3 10^3/uL (0.0-0.8) 05/04/22 21:56 Baso # (Auto) 0.1 10^3/uL (0.0-0.1) 05/04/22 21:56 Nucleated RBC % (auto) 0 % 05/04/22 21:56 Nucleated RBCs # 0.0 /100WBC 05/04/22 21:56 PT 12.50 SECONDS (12.1-14.9) 05/04/22 21:56 INR 0.90 (0.8-1.2) 05/04/22 21:56 Sodium 138 mmol/L (136-145) 05/04/22 21:56 Potassium 3.5 mmol/L (3.5-5.1) 05/04/22 21:56 Chloride 101 mmol/L (98-107) 05/04/22 21:56 Carbon Dioxide 27 mmol/L (22-29) 05/04/22 21:56 Anion Gap 13.5 (5-19) 05/04/22 21:56 BUN 8 mg/dL (8-23) 05/04/22 21:56 Creatinine 0.8 mg/dL (0.5-0.9) 05/04/22 21:56 GFR Calculation 71.3 mL/min (90-130) L 05/04/22 21:56 Glucose 119 mg/dL (65-115) H 05/04/22 21:56 Calculated Osmolality 285 mOsm/kg (285-295) 05/04/22 21:56 Calcium 9.5 mg/dL (8.5-10.5) 05/04/22 21:56 Total Bilirubin 0.5 mg/dL (0.15-1.2) 05/04/22 21:56 AST 49 U/L (0-32) H 05/04/22 21:56 ALT 53 U/L (0-33) H 05/04/22 21:56 Alkaline Phosphatase 107 U/L (35-105) H 05/04/22 21:56 Troponin T Baseline 7 ng/L (0-10) 05/04/22 21:56 Troponin T 120 Minute 7.13 ng/L (0-10) 05/04/22 23:03 Delta Troponin T 0.13 ABS# (0-10) 05/04/22 23:03 Total Protein 7.5 g/dL (6.6-8.7) 05/04/22 21:56 Albumin 4.5 g/dL (3.5-5.2) 05/04/22 21:56 Globulin 3.0 g/dL (1.3-4.6) 05/04/22 21:56 EKG Data EKG 1: I personally reviewed and interpreted this EKG as follows: EKG interpretation date: 05/04/22 EKG interpretation time: 21:35 Interpretation: nsr hr [address] or t wave abnormalities qrs 79 qtc 414 Discharge Plan Discharge Patient Disposition: Home Clinical Impression: Chest pain Prescriptions: No Action doxycycline hyclate 100 mg capsule 100 mg PO BID Qty: 20 0RF Rx Instructions: for lung infection prednisone 20 mg tablet 20 mg PO DAILY Qty: 10 0RF Rx Instructions: for lung inflammation ferrous sulfate 325 mg (65 mg iron) tablet 325 mg PO DAILY Qty: 90 1RF albuterol sulfate 90 mcg/actuation HFA aerosol inhaler 2 puff inhalation trazodone 50 mg tablet See Rx Instructions .ROUTE .COMPLEX Qty: 30 5RF Dose Instruction: TAKE ONE TABLET BY MOUTH ONCE EVERY NIGHT Rx Instructions: TAKE ONE TABLET BY MOUTH ONCE EVERY NIGHT pravastatin 80 mg tablet 80 mg PO DAILY Qty: 90 3RF citalopram 20 mg tablet See Rx Instructions .ROUTE .COMPLEX Qty: 90 1RF Dose Instruction: Take 1 tablet by mouth once daily Rx Instructions: Take 1 tablet by mouth once daily cetirizine 10 mg tablet 10 mg PO DAILY PRN (Reason: allergy symptoms) Qty: 90 3RF Advair Diskus 250-50 mcg/dose blister with device 1 ea INHALATION BID Combivent Respimat 20-100 mcg/actuation Mist 1 puff INHALATION Q6H hydrocodone-acetaminophen 5-325 mg tablet 1 - 2 tab PO Q5H PRN (Reason: pain) Qty: 20 0RF Discharge Orders: Discharge ED (Routine); Ordered 05/05/22 Ordered By: Meg Ruffin Referrals: Tony Myers DO [Primary Care Provider] - 1-3 days Discharge Diet: Advance as tolerated Discharge Activity: Resume usual activity Patient Instructions: Chest Pain (ED) Coding Level of Care Code ED Soccer Commentator for Chg Fwd Exam Comprehensive
[2022-05-04 22:11] LABS: Basophils # 0.1 10^3/uL (0.0-0.1); Basophils % 1.3 %; Eosinophils # 0.3 10^3/uL (0.0-0.8); Eosinophils % 3.7 %; Hematocrit 44.7 % (37.0-47.0); Hemoglobin 14.3 g/dL (11.5-15.3); Lymphocytes # 2.2 10^3/uL (0.8-4.8); Lymphocytes % 31.5 %; Mean Corpuscular Hemoglobin 29.5 pg (28.0-34.0); Mean Corpuscular Volume 92.4 fl (81-99); Mean Platelet Volume 9.8 fL (7.4-10.4); Monocytes # 0.5 10^3/uL (0.2-0.9); Monocytes % 7.5 %; Neutrophils # 3.92 10^3/uL (1.8-7.7); Neutrophils % 55.9 %; Nucleated Red Blood Cells % 0 %; Platelet Count 292 10^3/cmm (130-400); Red Blood Count 4.84 10^6/uL (4.1-5.3); Red Cell Distribution Width 17.6 % (12.1-15.1)
[2022-05-04] MEDS: nitroglycerin 0.4 mg sublingual Tablet SUBLINGUAL (22:12)
[2022-05-04] MEDS: sodium chloride 0.9% 1,000 ML 999 ML IV (22:34)
[2022-05-04] MEDS: ondansetron 2 mg/ML SDV 2 mL 4 MG IVP (22:34)
[2022-05-04 22:38] LABS: Alanine Aminotransferase 53 U/L (0-33); Albumin Level 4.5 g/dL (3.5-5.2); Alkaline Phosphatase 107 U/L (35-105); Anion Gap 13.5 (5-19); Aspartate Amino Transferase 49 U/L (0-32); Blood Urea Nitrogen 8 mg/dL (8-23); Calcium 9.5 mg/dL (8.5-10.5); Carbon Dioxide 27 mmol/L (22-29); Chloride 101 mmol/L (98-107); Glomerular Filtration Rate 71.3 mL/min (90-130); Glucose 119 mg/dL (65-115); Osmolality Calculated 285 mOsm/kg (285-295); Potassium 3.5 mmol/L (3.5-5.1); Sodium 138 mmol/L (136-145); Total Bilirubin 0.5 mg/dL (0.15-1.2); Total Protein 7.5 g/dL (6.6-8.7)
[2022-05-04 22:45] LABS: Troponin(5th) Baseline 7 ng/L (0-10)
--- NOTE | 2022-05-04 22:52 | CTR_ITS ---
PROCEDURE INFORMATION: Exam: CTA Chest With Contrast Exam date and time: 05/04/2022 11:26 PM Age: 66 years old Clinical indication: Shortness of breath; Chest pressure; Patient HX: C/O chest pain with SOB. History of breast cancer and copd. ; Additional info: Cp TECHNIQUE: Imaging protocol: Computed tomographic angiography of the chest with contrast. 3D rendering (Not supervised by radiologist): MIP and/or 3D reconstructed images were created by the technologist. Radiation optimization: All CT scans at this facility use at least one of these dose optimization techniques: automated exposure control; mA and/or kV adjustment per patient size (includes targeted exams where dose is matched to clinical indication); or iterative reconstruction. Contrast material: OMNI 350; Contrast volume: 55 ml; Contrast route: INTRAVENOUS (IV); COMPARISON: 1. CR (CHEST, ) 05/04/2022 10:[address] guided radtherapyplan [id number] 06/18/2019 1:18 PM RADIATION DOSE METRICS: Total DLP (mGy-cm): 1087.05 FINDINGS: Pulmonary arteries: No filling defects in the pulmonary arteries to suggest pulmonary embolism. Aorta: Mild atherosclerotic changes in the visualized arteries. No evidence for aortic aneurysm. Evaluation for aortic dissection is limited due to the phase of contrast-enhancement. Lungs: Calcified granulomas in the right lung. Three noncalcified nodules in the right lung. A nodule in the right middle lobe with an average measurement of 3 mm is stable. Two right upper lobe nodules are new,, the of these has of 3 mm (series 7, image 141). No focal consolidation. No pulmonary edema. There is linear scarring in the left lingula. Pleural spaces: No pneumothorax. No pleural effusion. Heart: Mild enlargement of the heart. Small pericardial effusion. Coronary arteries: Moderate atherosclerotic calcification in the coronary arteries. Esophagus: The esophagus is unremarkable. Mediastinal space: No mediastinal hematoma. No pneumomediastinum. Lymph nodes: Calcified lymph nodes in the right hilum. Liver: The visualized liver is unremarkable. Gallbladder and bile ducts: The visualized gallbladder is unremarkable. No dilatation of the visualized bile ducts. Pancreas: The visualized pancreas is unremarkable. No pancreatic ductal dilatation. Spleen: Multiple calcified granulomas in the spleen. Adrenal glands: The right and left adrenal glands are unremarkable. Kidneys and ureters: The visualized left kidney is unremarkable. Bones/joints: Degenerative changes in the spine and shoulders. Soft tissues: No acute abnormality in the extrathoracic soft tissues. An irregular nodular focus in the left breast has decreased in size. This now measures 1.9 x 1.4 cm, previously measured 3.2 x 2.0 cm (series 7, image 171). CT/CT angio chest PE protcl [id number] IMPRESSION: 1. No evidence for pulmonary embolism. 2. No acute cardiopulmonary process. 3. Three noncalcified nodules in the right lung. A nodule in the right middle lobe with an average measurement of 3 mm is stable. Two right upper lobe nodules are new,, the of these has of 3 mm. Fleischner Society follow up recommendations for incidental nodules are not indicated. Follow up per the patient's medical condition. 4. Small pericardial effusion. 5. An irregular nodular focus in the left breast has decreased in size. This may represent residual postsurgical and/or post radiation change. 6. Incidental/nonacute findings are listed in the report.
[2022-05-04 23:27] LABS: Troponin 5 2HR 7.13 ng/L (0-10)
--- NOTE | 2022-05-04 23:28 | ECG_ITS ---
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 Measurements Intervals [place] Rate: 46 P: 60 ND: 126 QRS: 64 QRSD: 88 T: 86 QT: 491 QTc: 430 Interpretive Statements SINUS BRADYCARDIA POSSIBLE RIGHT VENTRICULAR CONDUCTION DELAY [RSR (QR) IN V1/V2] MINIMAL ST DEPRESSION [0.025+ mV ST DEPRESSION] Compared to ECG 05/04/2022 21:50:19 ST (T wave) deviation now present Sinus rhythm no longer present Electronically Signed On 05-05-2022 17:04:03 FILTERATION OPERATOR by Selam Gonzalez M.D. [id number]
[2022-05-04] MEDS: iohexol 350 mg/mL 500 mL Btl (per mL) IV (23:36)
[2022-05-04 23:50] LABS: Troponin 5 2HR Delta 0.13 ABS# (0-10)
[2022-05-05] VITALS: BP 157/71; PULSE 66; RESP 15; O2SAT 90
== END 2022-05-05 00:38 | disposition home or self-care (01) ==
PROVIDERS: Emergency Provider Emergency Medicine; PCP Family Medicine
DX: R07.9 Chest pain, unspecified (principal)
CPT/HCPCS: 71045; 71275; 80053; 84484; 85025; 85610; 93005; 96361; 96374; 99285; J2405; J7030; Q9967

== ENCOUNTER → 2023-03-28 08:45 | Outpatient (BNVA) | payer MEDICARE, SELFPAY | PROVIDERS: PCP Family Medicine; Visit Provider Family Medicine | DX: Z13.6 Encounter for screening for cardiovascular disorders (principal); Z00.00 Encounter for general adult medical examination without abnormal findings | CPT/HCPCS: 80053; 80061 ==

== ENCOUNTER → 2023-04-12 11:58 | Outpatient (BNVA) | payer MEDICARE, SELFPAY | PROVIDERS: PCP Family Medicine; Visit Provider Clinical Nurse Specialist Adult Health | DX: L98.9 Disorder of the skin and subcutaneous tissue, unspecified (principal) | CPT/HCPCS: 88304 ==

== ENCOUNTER 2023-04-18 13:08 | Outpatient (CLI) | payer MEDICARE, SELFPAY ==
--- NOTE | 2023-04-18 13:42 | MM_ITS ---
WS: [id number] BILATERAL 3D TOMOSYNTHESIS DIGITAL DIAGNOSTIC MAMMOGRAPHY WITH CAD CLINICAL INFORMATION: HX OF BREAST CANCER COMPARISON: 2020 TECHNIQUE: Bilateral CC, MLO, and ML views. FINDINGS: The breasts are composed of heterogeneous fibroglandular density, which can limit the detection of sm all underlying mass lesions. Postoperative changes LEFT breast with lumpectomy and parenchymal fibros is. Incidental punctate calcifications . Vascular calcification. No suspicious focal mass, asymmetry, calcifications, or architectural distortion. No evidence of zafar gnancy. IMPRESSION: MM/[place] [id number] BI-RADS: 2-Benign FOLLOW UP: 1 Year Follow-up Recommend return to annual diagnostic mammography.
== END 2023-04-18 13:09 | disposition home or self-care (01) ==
LOC: RAD 13:08
PROVIDERS: PCP Family Medicine; Visit Provider Family Medicine
DX: Z85.3 Personal history of malignant neoplasm of breast (principal)
CPT/HCPCS: 77062; G0279

== ENCOUNTER → 2024-03-24 12:02 | Outpatient (BNVA) | payer MEDICARE, SELFPAY | PROVIDERS: PCP Family Medicine; Visit Provider Family Medicine | DX: Z00.00 Encounter for general adult medical examination without abnormal findings (principal); I10 Essential (primary) hypertension | CPT/HCPCS: 80053; 80061 ==

== ENCOUNTER → 2025-04-28 12:15 | Outpatient (BNVA) | payer MEDICARE, SELFPAY | PROVIDERS: PCP Family Medicine | DX: R52 Pain, unspecified (principal) | CPT/HCPCS: 87400; 87426 ==